=== PATIENT | female | born 1985 | race African-American/Black ===

== ENCOUNTER 2025-06-05 18:59 | Observation (INO) | payer BC ==
[2025-06-05 20:17] VITALS: BMI 41.8
[2025-06-05] MEDS: Acetaminophen 500 MG TAB PO SCH (21:40)
[2025-06-05] MEDS: Aspirin 325 MG TAB PO SCH (21:40)
[2025-06-05 23:15] LABS: Cardiac Risk 6.0 (Less than 4.5); Cholesterol 186.0 mg/dl (< 200 Desired); HDL Cholesterol 31.0 mg/dL (>60 Neg Risk); LDL Cholesterol, Calculated 106.0 mg/dL; Triglycerides 246.0 mg/dL (Less than 150)
[2025-06-05 23:38] LABS: Free T4 (Free Thyroxine) 0.79 ng/dL (0.70-1.48); Thyroid Stimulating Hormone 2.3324 uIU/mL (0.35-4.94)
[2025-06-06] MEDS ORDERED: Acetaminophen 325 MG TAB PO PRN (01:04)
[2025-06-06 05:53] LABS: #Basophils Less than 0.03 10x3/uL (0.0-0.2); #Eosinophils 0.29 10x3/uL (0.0-0.7); #Monocytes 0.57 10x3/uL (0.11-0.59); #Neutrophils 2.39 10x3/uL (1.40-6.50); %Basophils 0.3 % (0.0-1.0); %Eosinophils 5.1 % (0.0-10.0); %Lymphocytes 42.9 % (21.0-51.0); %Monocytes 9.9 % (0.0-10.0); %Neutrophils 41.6 % (42.0-75.0); Hematocrit 37.1 % (36.0-47.0); Hemoglobin 12.1 g/dL (12.0-16.0); Mean Corpuscular Hemoglobin 29.9 pg (27.0-31.0); Mean Corpuscular Volume 91.6 fL (78.0-98.0); Platelet Count 251 10x3/uL (130-400); Red Blood Cell (RBC) Count 4.05 mill/uL (4.20-5.40); White Blood Cell (WBC) Count 5.74 10x3/uL (4.8-10.8)
[2025-06-06 06:17] LABS: ALT (SGPT) 7 U/L (Less than 34); AST (SGOT) 10 U/L (11-34); Albumin 3.3 g/dL (3.1-4.5); Alkaline Phosphatase 71 U/L (40-110); Anion Gap 11 mmol/L (10-20); BUN (Urea Nitrogen) 10 mg/dL (7.0-18.7); Bilirubin, Total 0.1 mg/dL (0.3-1.2); Calc. Creatinine Clearance 228 mL/min (70-130); Calcium 8.9 mg/dL (7.8-10.44); Carbon Dioxide 20 mmol/L (22-29); Chloride 113 mmol/L (98-107); Globulin 3.0 g/dL (2.4-3.5); Glucose 105 mg/dL (70-105); Potassium 3.6 mmol/L (3.5-5.1); Sodium 140 mmol/L (136-145)
[2025-06-06] MEDS: Enoxaparin 40 MG (0.4 mL) SYRINGE SC SCH (09:20)
[2025-06-06 12:14] VITALS: BP 123/83; TEMP 97.4
[2025-06-09 15:19] LABS: ANA Symphony (Qualitative) Negative (Negative); ANA Symphony (Quantitative) 0.2 Ratio (< 0.7 Negative); dsDNA IgG Antibody 1.0 IU/mL (<10 Negative)
== END 2025-06-06 14:07 | disposition home or self-care (01) ==
LOC: INTOOBSV 18:59 → T4-B 18:59
PROVIDERS: ADMIT Family Medicine; ATTEND Family Medicine
DX: G93.41 Metabolic encephalopathy (principal); Z90.710 Acquired absence of both cervix and uterus
CPT/HCPCS: 36415; 70553; 76376; 80053; 80061; 83036; 84439; 84443; 85025; 86038; 86141; 86225; G0378